=== PATIENT | female | born 1940 | race Asian ===

== ENCOUNTER 2016-10-11 08:16 | Inpatient (IN) | payer MEDICARE, MEDICAID ==
[2016-10-11] VITALS (10 sets, daily range): BP systolic 141–171; BP diastolic 61–99; PULSE 62–88; RESP 16–21; O2SAT 96–99
[~2016-10-11] VITALS: Ht 149.9 cm; Wt 60.6 kg
--- NOTE | 2016-10-11 08:23 | ED.REPORT ---
HPI-Chest Pain 40 and Over Date of Service Oct 11, 2016 ED Provider: Cammy Marie MD The patient is a 76 year old female w/ a hx of CABG (2012) and HTN who presents to the ED via EMS from the due to crushing substernal chest pain onset this morning. The pain has been waxing and waning for the past 3 days. Two days ago, she was walking around looking for someone when she felt, "very sharp and long chest pain that really hurt." The episode lasted about 1 minute, then abated. She had 3 recurrent, brief, episodes that day. This morning, after waking up, she began experiencing symptoms again and the pressure became constant and significantly worse. She is not experiencing any pain while at the ED. She was given 4 aspirin at [facility] [employer]. Pt denies nausea, diaphoresis, fever, cough, and chills. Dr. Crow Castorena is her PCP. Pt had a 3-way bypass in [place] in 2012. Records from [place] hospital are obtained and given to hospitalist. Nursing Notes Stated Complaint: CHEST PAIN Nursing Notes Reviewed: Yes Allergies: Coded Allergies: No Known Allergies (Unverified , 10/11/16) Scheduled Alendronate Sodium (Fosamax) 70 Mg Tablet 70 MG PO WEEKLY Aspirin (Aspirin) 81 Mg Tablet 81 MG PO DAILY Cyanocobalamin (Vitamin B-12) (Vitamin B12) 5,000 Mcg Tab.rapdis 5,000 MCG PO DAILY Hydrochlorothiazide (Hydrochlorothiazide) 12.5 Mg Capsule 12.5 MG PO DAILY Losartan Potassium (Losartan Potassium) 50 Mg Tablet 50 MG PO DAILY Metoprolol Succinate ER (Metoprolol Succinate ER) 50 Mg Tab.er.24h 50 MG PO DAILY Multivitamin (Once Daily) 1 Each Tablet 1 EACH PO DAILY Ranitidine (Ranitidine) 150 Mg Capsule 150 MG PO BID Simvastatin (Simvastatin) 40 Mg Tablet 40 MG PO HS Scheduled PRN Acetaminophen (Acetaminophen) 500 Mg Tablet 1,000 MG PO Q6H PRN PRN For Pain Diphenhydra/Phenyleph/Acetamin (Allergy Plus-Sinus Broderick Caplet) 1 Each Tablet 1-2 EACH PO q4-6 hours PRN PRN allergies Tramadol (Tramadol) 50 Mg Tablet 50 MG PO BID PRN PRN For Pain General Time Seen by MD: 08:23 Chief Complaint Chest pain Hx Obtained From: Patient Arrived By: Ambulance Sudden in Onset?: Yes Onset Occurred: 3 days ago Symptom Duration: Since onset Location: : Substernal Severity: Current: No pain currently Severity: Maximum: Moderate Recent Healthcare: No recent doctor visit, No recent hospitalization Similar Sx Previous: No Past Medical History Past Medical History rheumatism arthritis Reports: Hypertension Past Surgical History Bypass surgery Reports: CABG, Inguinal hernia repair Reports: Knee replacement Social History Other Social History: Lives with children Ambulatory Status Independent Review of Systems Constitutional: Denies: Chills, Fever Respiratory: Denies: Non-productive cough Cardiovascular: Reports: Chest pain GI: Denies: Nausea Skin: Denies Diaphoresis Complete sys rev & neg: except as marked. Physical Exam Initial Vital Signs Vital Signs (First) Date Time Temp Pulse Resp B/P Pulse Ox O2 Delivery O2 Flow Rate FiO2 10/11/16 08:26 36.3 88 21 165/74 99 Room Air Initial VS: Reviewed Head / Eyes: Atraumatic, Normocephalic, PERRL ENT: Mucous membranes moist, Conjunctiva normal, No scleral icterus Neck: Supple, Non-tender, Full range of motion Back: No CVA tenderness Extremities: Vascular intact, Neuro intact, No swelling, No tenderness Skin: Warm, Dry, No cyanosis Neurologic: Alert, Oriented, Nonfocal Psychiatric: Mood/affect normal, Behavior normal, Normal thought content General/Constitutional: Awake, Alert, Cooperative Respiratory / Chest: Atraumatic, Breath sounds NL, Breath sounds = bilat, No respiratory distress, No rales, No rhonchi, No wheezing, No retractions mild left tenderness with palpation of 3rd and 4th ribs anteriorly - pain is NOT the pain she is concerned with over the last days Cardiovascular: Heart rate NL, Regular rhythm, Heart sounds NL, No gallop, No murmurs, No rubs Abdomen: Atraumatic, Soft, Non-tender, No guarding, No rebound, BS normoactive , No distention multiple psoriatic plaques over torso Interpretation & Diagnostics Lab Results Interpretation Result Diagram: 10/12/1662410/12/1625 Test 10/11/16 08:35 Hemoglobin A1c 6.2% (4.8-5.6) Total Bilirubin 0.5mg/dL (0.0-1.2) Aspartate Amino Transf (AST/SGOT) 27U/L (0-50) Alanine Aminotransferase (ALT/SGPT) 15U/L (0-32) Alkaline Phosphatase 84U/L (25-165) Pro-B-Type Natriuretic Peptide 306.1pg/mL (0-738) Total Protein 7.4g/dL (6.4-8.4) Albumin 3.9g/dL (3.4-5.0) ECG Interpretation ECG Interpretation: ST depression V2-V6 Anterial- lateral ischemia no prior EKG for comparison Time: 08:30 Interpreted by: ED physician Normal ECG Interpretation: Normal sinus rhythm (77) ECG Interpretation: Resolved lateral ST depression Time: 11:03 Interpreted by: ED physician Normal ECG Interpretation: Normal sinus rhythm (64) X-Ray Chest Interpretation Chest Xray Interpretation: IMPRESSION: No acute cardiopulmonary abnormality or interval change Dictated by: Henry Barrientos M.D. on 10/11/2016 at 9:24 Approved by: Henry Barrientos M.D. on 10/11/2016 at 9:30 View: Portable Interpretation / Wet Read by: Interpret - Radiologist Re-Eval/Medical Decision Med Decision/Clinical Course 76-year-old woman with known coronary disease presents with chest pain starting 3 days ago. intermittent and initially with mild activity. This morning worse, noted upon awakening this morning associated with dyspnea a symptom she had not noticed previously. Initial workup is unremarkable she has been pain-free in the emergency department. Certainly high risk for acute coronary syndrome. We will admit for observation and additional workup. Records from her hospital in [place] are obtained and given to the hospitalist Time of Eval: 10:00 Patient Status: Condition unchanged Re-Evaluation/Progress Note: Pt remains chest pain free. Will review imaging and lab results. Consultation : Consulted With: Hospitalist Call Returned at: 11:07 Note: Dr. Sterling is consult for Dr. Hines. Records from [place] hospital are obtained and given to hospitalist. Pt had a 3-way bypass in [place] in 2012. Counseled Regarding: Diagnosis, Lab results, Need for admission Discharge & Departure Primary Impression: Chest pain Chest pain type: unspecified Qualified Code: R07.9 - Chest pain, unspecified Disposition: ADMITTED TO HOSPITAL Discharge Condition All VS Reviewed: Yes Condition: Stable Referrals: Crow Castorena DO (PCP) Scribe Attestation Portion of this note were transcribed by Lashawn Alvarez. I, Dr. Marie, personally performed the history, physical exam, and medical decision-making: I reviewed and confirmed the accuracy for the information in the transcribed note. Signed by: kem Barrientos, 10/11/16 1200 Attending Statement pt seen and examined. High risk chest pain. Pain free in ED but clear ST depression/ischemia with pain. Agree with heparin gtt, admission and cardiac consultation. copies to: Crow Castorena Shawna L MD Oct 11, 2016 08:23 LASHAWN ALVAREZ Oct 11, 2016 08:53 no prior EKG for comparison Time: 08:30 Interpreted by: ED physician Normal ECG Interpretation: Normal sinus rhythm (77) ECG Interpretation: Resolved lateral ST depression Time: 11:03 Interpreted by: ED physician Normal ECG Interpretation: Normal sinus rhythm (64) X-Ray Chest Interpretation Chest Xray Interpretation: IMPRESSION: No acute cardiopulmonary abnormality or interval change Dictated by: Henry Barrientos M.D. on 10/11/2016 at 9:24 Approved by: Henry Barrientos M.D. on 10/11/2016 at 9:30 View: Portable Interpretation / Wet Read by: Interpret - Radiologist Re-Eval/Medical Decision Med Decision/Clinical Course 76-year-old woman with known coronary disease presents with chest pain starting 3 days ago. intermittent and initially with mild activity. This morning worse, noted upon awakening this morning associated with dyspnea a symptom she had not noticed previously. Initial workup is unremarkable she has been pain-free in the emergency department. Certainly high risk for acute coronary syndrome. We will admit for observation and additional workup. Records from her hospital in [place] are obtained and given to the hospitalist Time of Eval: 10:00 Patient Status: Condition unchanged Re-Evaluation/Progress Note: Pt remains chest pain free. Will review imaging and lab results. Consultation : Consulted With: Hospitalist Call Returned at: 11:07 Note: Dr. Sterling is consult for Dr. Hines. Records from [facility] are obtained and given to hospitalist. Pt had a 3-way bypass in [place] in 2012. Counseled Regarding: Diagnosis, Lab results, Need for admission Discharge & Departure Primary Impression: Chest pain Chest pain type: unspecified Qualified Code: R07.9 - Chest pain, unspecified Disposition: ADMITTED TO HOSPITAL Discharge Condition All VS Reviewed: Yes Condition: Stable Referrals: Crow Castorena DO (PCP) Kem Attestation Portion of this note were transcribed by Lashawn Alvarez. I, Dr. Marie, personally performed the history, physical exam, and medical decision-making: I reviewed and confirmed the accuracy for the information in the transcribed note. Signed by: kem Barrientos, 10/11/16 1200 copies to: Crow Castorena Shawna L MD Oct 11, 2016 08:23 LASHAWN ALVAREZ Oct 11, 2016 08:53
[2016-10-11 09:09] LABS: BASOPHILS % (AUTO) 0.4 % (0-3); MONOCYTES % (AUTO) 5.6 % (4-12); Mean Corpuscular Hemoglobin 30.6 pg (27.0-35.0); Mean Corpuscular Volume 92.3 fL (81-100); NEUTROPHILS % (AUTO) 66.8 % (40-74); Platelet Count 259 bil/L (150-400)
[2016-10-11 09:14] LABS: TROPONIN T 0.01 ug/L (0.0-0.011)
[2016-10-11 09:26] LABS: Magnesium 1.7 mg/dL (1.6-2.6)
--- NOTE | 2016-10-11 09:32 | DRSVH ---
PROCEDURE: X-RAY CHEST ONE VIEW, PORTABLE ([id number]) INDICATIONS: chest pain TECHNIQUE: One view of the chest was acquired. COMPARISON: 09/23/2016 FINDINGS: Surgical changes and devices: Median sternotomy Lungs and pleura: No pleural effusions or pneumothorax. Lungs are clear. Mediastinum: Mediastinal contours appear normal. Heart size is normal. Bones and chest wall: No suspicious bony lesions. Multiple insufficiency compression fractures. Oste openia. Osteoarthritis of the a.c. and glenohumeral joints. Overlying soft tissues appear unremarkabl e. IMPRESSION: No acute cardiopulmonary abnormality or interval change Dictated by: Henry Barrientos M.D. on 10/11/2016 at 9:24 Approved by: Henry Barrientos M.D. on 10/11/2016 at 9:30
[2016-10-11] MEDS ORDERED: Heparin 25K Unit/500mL 0.45 NS 25,000 UNIT in IV Premix 1 EACH IV ONE (11:00)
[2016-10-11] MEDS ORDERED: Heparin 5,000 Unit/mL Inj IVPUSH ONE (11:00)
[2016-10-11] MEDS ORDERED: Polyethylene Glycol (PEG) 17 Gm Powder PO PRN (11:05)
[2016-10-11] MEDS ORDERED: Ondansetron 2 mg/mL 2 mL Inj IVPUSH PRN (11:05)
[2016-10-11] MEDS ORDERED: Atropine 1 mg/10 mL (Code) Syringe IVPUSH PRN (11:05)
[2016-10-11] MEDS ORDERED: Senna-Docusate 8.6-50 mg Tablet PO PRN (11:05)
[2016-10-11] MEDS ORDERED: Alum-Mag Hydrox-Simeth 30 mL Suspension PO PRN (11:05)
[2016-10-11] MEDS ORDERED: Heparin 5,000 Unit/mL Inj IVPUSH PRN (11:10)
[2016-10-11] MEDS ORDERED: Heparin 25K Unit/500mL 0.45 NS 25,000 UNIT in IV Premix 1 EACH IV SCH (11:10)
--- NOTE | 2016-10-11 11:25 | PCM.HPMED ---
Subjective Date of Service Oct 11, 2016 Primary Provider: Admitting Physician: Iam Hines MD Primary Care Physician: Crow Castorena DO Attending Physician: Iam Hines MD Admit Status: From the Emergency Department, Full Admit Chief Complaint: Chest Pain History of Present Illness: Patient is a 76 year old female with a past medical history of Essential Hypertension, Hyperlipidemia, Coronary Artery Disease status post CABG in 2013, and Osteoarthritis. She presents to the ER complaining of chest pain since this morning. Pt states she awoke this morning with a heavy pressure like sensation in the center of her chest. Pt states the pain was non radiating. It was associated with shortness of breath and diaphoresis. She denies any associated nausea, vomiting, dizziness, palpitations, and abdominal pain. She states she has been having similar pain over the last 3 days. She went to Urgent Care this morning and was referred to the ER for further evaluation. In the ER, pt was found to have ST depression on EKG in leads V3-V6 which is new compared to her previous EKG in 2013. Pt was given 324 mg of Aspirin and SL Nitroglycerin in the ER, and now has complete resolution of her chest pain. Pt has no other complaints or concerns at this time. Review of Systems: All systems reviewed and are negative except for what has already been mentioned in the HPI. Allergies Coded Allergies: No Known Allergies (Unverified , 10/11/16) Home Medications Pt is unsure of which medications she is taking currently and her medication reconciliation is not completed yet. PMH 1. Essential Hypertension 2. Hyperlipidemia 3. Coronary Artery Disease 4. Osteoarthritis Surgical History 1. CABG, 4 vessels, 2013 in [place], [place] Family History Father - Essential Hypertension, CAD Mother - Stroke Social History Hx Alcohol Use: No Hx Substance Use: No Hx Tobacco Use: No Smoking Status: Never Smoker Living Arrangement: with Family Exam Vital Signs Vital Sign - Last Date Time Temp Pulse Resp B/P Pulse Ox O2 Delivery O2 Flow Rate FiO2 10/11/16 11:02 65 20 164/70 97 Room Air 10/11/16 08:26 36.3 Exam GEN: NAD, Pt laying comfortably in bed, Hard of hearing HEENT: AT/NC, PERRLA, EOMI, MM moist NECK: Supple, No thyromegaly CARDIAC: RRR, No M/R/G PULM: CTAB ABD: Soft, NT, ND, Positive BS in all quadrants; No hepatosplenomegaly present EXT: No C/C/E; No calve tenderness bilaterally SKIN: Warm, dry, pink, and intact NEURO: Alert and oriented x3; Following all commands Lab and Diagnostics Result Diagram: 10/11/1635 10/11/16 0835 X-Rays, CTs and MRIs X-RAY CHEST ONE VIEW, PORTABLE INDICATIONS: chest pain TECHNIQUE: One view of the chest was acquired. COMPARISON: 09/23/2016 FINDINGS: Surgical changes and devices: Median sternotomy Lungs and pleura: No pleural effusions or pneumothorax. Lungs are clear. Mediastinum: Mediastinal contours appear normal. Heart size is normal. Bones and chest wall: No suspicious bony lesions. Multiple insufficiency compression fractures. Osteopenia. Osteoarthritis of the a.c. and glenohumeral joints. Overlying soft tissues appear unremarkable. IMPRESSION: No acute cardiopulmonary abnormality or interval change 12-lead ECG EKG shows an acute ST depression in leads V3-V6 Assessment & Plan Patient is a 76 year old female with a past medical history of CAD, Hyperlipidemia, and Essential Hypertension who is admitted to hospital for Acute Coronary Syndrome. 1. Acute Coronary Syndrome - Present on admission - Pt does have a hx of CAD and is status post 4 vessel CABG in 2012 in [place] - Admit to PCU with telemetry - Repeat STAT EKG now - Start Aspirin 324 mg daily - Start Atorvastatin 80 mg PO daily - Start Metoprolol 12.5 mg PO BID - Start SL Nitroglycerin PRN chest pain - Start supplemental O2 to keep SpO2 greater than 92% - Start Morphine 1-2 mg IV q 4 hours PRN for refractory chest pain - Start IV Heparin drip now - Consult Cardiology now - Will check serial CK, CKMP, and Troponins - NPO after midnight for stress test - Will order an ECHO now - NM stress test in AM if troponin negative x4 - EKG PRN chest pain 2. Essential Hypertension - Pt is unsure of exactly which medication she takes at home - Start Metoprolol 12.5 mg PO BID 3. Hyperlipidemia - Pt is unsure of which medication she is taking at home - Start Atorvastatin 80 mg PO daily now - Check fasting lipid panel in AM 4. Prophylaxis - SCDs - Famotidine CODE STATUS: FULL, per discussion with patient at bedside Iam Hines MD Oct 11, 2016 11:25
--- NOTE | 2016-10-11 11:32 | NUR ---
Admission Pr arrived on [facility] to rm 3020. A/Ox3, No complains of chest pain/discomfrt/pressure, SOB or nausea. Pt os [place] ear hearing better. Able to ambulate from gurney to bed, with SBA/1 Per assist. VSS, call light with in reach, will continue to monitor.
[2016-10-11] MEDS: 0.9% Sodium Chloride 1,000 ML IV SCH (13:43)
[2016-10-11 14:35] LABS: Magnesium 1.7 mg/dL (1.6-2.6)
--- NOTE | 2016-10-11 15:08 | DRSVH ---
Merged With [facility] [address] [place] [place] [address] Echocardiogram Report Name: JAMILA BAILON Study Date: 10/11/2016 Height : 60 in Hospital Exam Location: [facility] Weight : 138 lb Gender: Female BSA: 1 .6 m2 : 1940 Age: 76 yrs BP: 16 4/70 mmHg Reason For Study: Chest pain History: CABG Ordering Physician: HOSPITALIST [facility] Performed By: Hermila Sotomayor Referring Physician: DR. ANTONIETA DAVILA Interpretation Summary 1) Normal left ventricular thickness, size, wall motion,and systolic function (EF 65-70%). 2) Normal right ventricular size and function. 3) Mildly sclerotic aortic valve with no hemodynamically significant stenosis or regurgitation. 4) Mild to moderate mitral regurgitation present. 5) No prior Echo available for comparison. Procedure: A two-dimensional transthoracic echocardiogram with color flow and Doppler was performed. The study quality was technically adequate. There is no prior echocardiogram noted for this patient. The patient was in normal sinus rhythm during the exam. Left Ventricle: The left ventricle is normal in size, wall thickness, and systolic function without any focal wall motion abnormalities. The ejection fraction is estimated to be 65-70%. Left ventricular systolic function is normal without focal wall motion abnormalities. Assessment of diastolic parameters indicates a relaxation abnormality of the left ventricle, consistent with normal filling pressures. Right Ventricle: The right ventricle is normal in size and function. Atria: Both atria are normal in size. There is no Doppler evidence for an atrial septal defect. Mitral Valve: The mitral valve leaflets appear normal. There is no evidence of stenosis, fluttering, or prolapse. The mitral valve leaflets are mildly calcified. There is mild to moderate mitral regurgitation. Aortic Valve: The aortic valve is trileaflet. There is mild aortic valve sclerosis. The aortic valve opens well. There is no hemodynamically significant valvular aortic stenosis. No aortic regurgitation is present. Tricuspid Valve: The tricuspid valve leaflets are thin and pliable. There is moderate tricuspid regurgitation. The right ventricular systolic pressure is estimated at 35 mmHg assuming a right atrial pressure of 3 mm Hg. Pulmonic Valve: The pulmonic valve leaflets are thin and pliable; valve motion is normal. There is no pulmonic valvular regurgitation. Great Vessels: The aortic root is normal size. The dimensions of the ascending aorta are normal. The pulmonary artery is normal size. The IVC is of normal diameter and collapses greater than 50% with a sniff. This suggests a low right atrial pressure of 3 mm Hg. Pericardium/ Pleura There is no pericardial effusion. There is no pleural effusion. MMode/2D Measurements & Calculations LVIDd: 3.7 cm LA dimension: 4.3 cm RA long axis LVOT diam: 2.0 cm LVIDs: 2.4 cm AoV Opening FS: 36.3 % LA A2 area: 19.2 cm RA area EPSS: 0.53 cm LA A4 area: 19.5 cm Ao root diam IVSd: 0.95 cm LA length (vol) : 13.5 cm LVPWd: 0.89 cm RA vol Aortic Jxn: 2.7 cm LA vol: 57.3 ml : 31.1 ml asc Aorta Diam LA vol index RA : 19.5 mm/ Ao Arch Diam (Prox RVDd major Trans): 2.3 cm IVC diam: 2.0 cm : 5.9 cm LV burr. diameter/BSA LV sys. diameter/BSA RVD1 (basal) RVD2 (mid): 2.8 cm (cm/m^2): 2.3 (cm/m^2): 1.5 Doppler Measurements & Calculations Ao V2 max MV E max paul MV E/A: 1.1 TR max paul : 188.2 cm/sec : 90.8 cm/sec Med Peak E' Paul : 283.6 cm/sec Ao max PG MV A max paul TR max P.2 mmHg : 14.2 mmHg : 82.2 cm/sec E/E' med: 16.6 PA V2 max Ao mean PG MV P1/2t Lat Peak E' Paul : 98.2 cm/sec : 70.9 msec PA mean P.6 mmHg LVOT Max Paul MR ERO: 0.23 cm2 E/E' lat: 10.0 PA Accel Time : 103.7 cm/sec E/e' average: 13.3 : 0.07 sec BLANQUITA(I,D): 1.7 cm Pulm A Revs Dur sev ratio MV A dur: 0.13 sec MV dec time MV P1/2t max paul Ao V2 mean LV V1 max PG : 0.24 sec : 129.8 cm/sec MVA(P1/2t) Ao V2 VTI: 37.9 cm LV V1 VTI: 21.1 cm : 3.1 cm2 BLANQUITA(V,D): 1.7 cm2 MR flow rate PA V2 mean BLANQUITA indexed to BSA Pulm A Revs Dur - MV : 135.5 cm3/sec : 58.8 cm/sec (cm^2/m^2): 1.1 A Dur: -0.04 msec MR PISA radius Reading Physician:03:07 PM
--- NOTE | 2016-10-11 16:18 | PCM.CHPCAR ---
Consult Subjective Date of service Oct 11, 2016 Date of admit Oct 11, 2016 at 10:49 Provider Requesting Consult Primary Care Physician Primary Care Provider: Crow Castorena DO Chief Complaint Chest pain History of Present Illness Ms. Ross is a pleasant 76 year old female with PMH of HTN, HLD, RA and CAD (s /p CABG in 2012) presented to [facility] ED 2/2 CP x 3 days and getting far worse this morning. She states this pain began while she was walking around her house looking for her family 3 days ago and describes the chest pain as a heavy pressure like sensation mid sternum, non radiating without SOB and diaphoresis. Pt denies associated N/V, dizziness, palpitations or any other pain. She does endorse a similar pain about three years ago which led to her CABG in [place]. ECG in the ED showed ST depression in leads V3-V6, repeat ECG showed resolution of the ST depression. In ED Pt given ASA and nitro with resolution of her CP. Initial and repeat troponin Negative. Pt does endorse a semi productive cough over the last few days as well as a recent respiratory illness after receiving her flu and pneumonia vaccine approximately 3 weeks ago. No other sick contacts at home. Patient denies recent fever When asked to localize chest pain patient will point with one finger to left breast area. This pain is immediately reproduced upon palpation in both left breast area as well as sternal area. Of note Pt was recently seen as in the residency clinic for workup secondary to abnormal CXR. Patient had chest x-ray 09/23/2016 which showed mild interstitial prominence possibly fluid overload or underlying fibrotic change bones and chest wall at that time noted no suspicious bony abnormalities. CXR done 10/11/2016 showed multiple insufficiency compression fractures the bones and chest wall. Osteopenia. No acute cardiopulmonary abnormality or interval change. Mammogram done 09/07/2016 with repeat mammogram 09/14/2016 showed that the tissue of the left breast to be extremely dense with oval focal asymmetry with obscured margins of indeterminant significance. Follow-up ultrasound showed no evidence of malignancy and no abnormality to correspond with previous 2 mammography's. Per previous healthcare records from [place] is also reported patient has had a chest x-ray that was suggestive of TB. Pertinent past medical/cardiac history: Hypertension, hyperlipidemia, CAD status post CABG. patient does not endorse diabetic history though outpatient records from [place] show previously on metformin 500 twice a day. Home medications: Patient states home meds include hydrochlorothiazide, metoprolol, losartan, atorvastatin Social history: Patient is nonsmoker, denies EtOH use denies recreational drug use. Lives at home with daughter, son-in-law and granddaughter age 15. Family history significant for both parents suffering fatal heart attacks in their 70s. She reports 3 of her brothers have also suffered myocardial infarction. Review of Systems Review of Systems REVIEW OF SYSTEMS Constitutional: Denies Chills, Fever, Sweats, Weakness Eyes: Endorses blurry vision bilaterally (chronic). ENT: Denies Dysphagia, Ear Pain, Hoarseness, Nasal Congestion, Nose Discharge, Throat Pain. Endorses hearing loss bilaterally. Neck: Denies Mass, Pain, Swelling Cardiovascular: Denies Irregular Heart Rate, Palpitations, Rapid Heart Rate, SOB on Exertion, SOB while laying flat. Endorses heavy chest pain left sternal border left breast area, increased with palpation. Respiratory: Endorses mildly productive cough. Cannot classify consistency or makeup of phlegm. Gastrointestinal: Denies Abdominal Pain, Black tarry stools, Bright red blood in stool, Change in Appetite, Constipation, Diarrhea, Heartburn, Nausea, Vomiting Genitourinary: Denies No burning or pain with urination Neurological: Denies Change in LOC, Change in Speech, Confusion, Difficulty Walking, Dizziness, Double Vision, Drooping Mouth, Incoordination, Localized Weakness, Numbness, Seizures, Somnolence, Tremors, Vertigo Hematologic: Denies Abnormal Bleeding, Bruising PMH Past Medical History Hypertension hyperlipidemia CAD status post CABG in 2013 Rheumatoid arthritis Psoriasis Arthritis Osteoporosis Hearing loss, bilateral Past Surgical History CABG 2013 unknown vessel involvement Knee surgery Scheduled Alendronate Sodium (Fosamax) 70 Mg Tablet 70 MG PO WEEKLY (Reported) Aspirin (Aspirin) 81 Mg Tablet 81 MG PO DAILY (Reported) Cyanocobalamin (Vitamin B-12) (Vitamin B12) 5,000 Mcg Tab.rapdis 5,000 MCG PO DAILY (Reported) Hydrochlorothiazide (Hydrochlorothiazide) 12.5 Mg Capsule 12.5 MG PO DAILY ( Reported) Losartan Potassium (Losartan Potassium) 50 Mg Tablet 50 MG PO DAILY (Reported) Metoprolol Succinate ER (Metoprolol Succinate ER) 50 Mg Tab.er.24h 50 MG PO DAILY (Reported) Multivitamin (Once Daily) 1 Each Tablet 1 EACH PO DAILY (Reported) Ranitidine (Ranitidine) 150 Mg Capsule 150 MG PO BID (Reported) Simvastatin (Simvastatin) 40 Mg Tablet 40 MG PO HS (Reported) Scheduled PRN Acetaminophen (Acetaminophen) 500 Mg Tablet 1,000 MG PO Q6H PRN PRN For Pain ( Reported) Diphenhydra/Phenyleph/Acetamin (Allergy Plus-Sinus Broderick Caplet) 1 Each Tablet 1-2 EACH PO q4-6 hours PRN PRN allergies (Reported) Tramadol (Tramadol) 50 Mg Tablet 50 MG PO BID PRN PRN For Pain (Reported) Current Inpatient Medications Current Medications Sodium Chloride 10 ml 10 ml LOU IVFLUSH; Start 10/11/16 at 16:30 Sodium Chloride 1,000 ml @ 80 mls/hr [id number] IV; Start 10/11/16 at 11:02 Aspirin 81 mg DAILY PO; Start 10/12/16 at 08:30 Metoprolol Tartrate 12.5 mg Q12 PO; Start 10/11/16 at 20:30 Atorvastatin Calcium 80 mg HS PO; Start 10/11/16 at 21:00 Al Hydrox/Mg Hydrox/Simethicone 30 ml Q6 PRN PO; Start 10/11/16 at 11:05 Ondansetron HCl 4-8 mg prn nausea Q4 PRN IVPUSH; Start 10/11/16 at 11:05 Senna 1 tablet BID PRN PO; Start 10/11/16 at 11:05 Polyethylene Glycol 17 gm DAILY PRN PO; Start 10/11/16 at 11:05 Acetaminophen 325 mg Q6 PRN PO; Start 10/11/16 at 11:05 Nitroglycerin 0.4 mg Q5MIN PRN SL; Start 10/11/16 at 11:05 Morphine Sulfate 1-5 mg prn pain not relie... Q5M PRN IVPUSH; Start 10/11/16 at 11:05 Atropine Sulfate See above Q5MIN PRN IVPUSH; Start 10/11/16 at 11:05 Heparin Sodium (Porcine) Per Protocol for a... PRN PRN IVPUSH; Start 10/11/16 at 11:10 Allergies: Coded Allergies: No Known Allergies (Unverified , 10/11/16) Social History Hx Alcohol Use: NoHx Substance Use: NoHx Tobacco Use: No Smoking Status: Never Smoker Living Arrangement: with Family Exam Vital Signs Vital Sign - Last Date Time Temp Pulse Resp B/P Pulse Ox O2 Delivery O2 Flow Rate FiO2 10/11/16 11:33 37.1 62 18 169/70 98 Room Air Objective General: No acute distress, well-developed, well-nourished, appropriately interactive HEENT: Normocephalic, atraumatic. External ears without defect. Pupils equal, round, and reactive to light and accommodation. Anicteric sclerae, moist conjunctivae, and no lid lag. Oropharynx free of erythema and cobble stoning with moist mucosa. Neck: Supple with full range of motion. No jugular venous distension. No bruits. Bounding carotid pulses appreciated visually bilaterally Cardiovascular: Regular rate and rhythm with no murmurs, rubs, or gallops appreciated, central sternal scar from previous surgery, well-healed. Pulmonary: Slight expiratory wheeze right upper lower lobe. Normal respiratory effort with no use of accessory muscles. Abdomen: Soft, nontender, nondistended. Extremities: No clubbing, cyanosis, edema, or lymphadenopathy appreciated. Skin: Normal temperature, turgor, and texture; no rash, ulcers, or subcutaneous nodules appreciated. Neurological: Cranial nerves grossly intact. Normal muscle strength, tone, and bulk. Reflexes, coordination, and sensory function within normal limits. Psychiatric: Normal mood and affect. Alert and oriented to person, place, and time. Lab and Diagnostics Result Diagram: 10/11/16 0835 10/11/16 0835 X-Rays, CTs and MRIs . X-RAY CHEST ONE VIEW, PORTABLE Bones and chest wall: No suspicious bony lesions. Multiple insufficiency compression fractures. Osteopenia. Osteoarthritis of the a.c. and glenohumeral joints. Overlying soft tissues appear unremarkable. IMPRESSION: No acute cardiopulmonary abnormality or interval change . 12-lead ECG ECG in ED 10/11/2016 at 08:[address] depression in leads V2 through V6. Repeat ECG at 11:[address] depression. Additional Diagnostics: . Echocardiogram Report Interpretation Summary 1) Normal left ventricular thickness, size, wall motion,and systolic function ( EF 65-70%). 2) Normal right ventricular size and function. 3) Mildly sclerotic aortic valve with no hemodynamically significant stenosis or regurgitation. 4) Mild to moderate mitral regurgitation present. 5) No prior Echo available for comparison. . Assessment & Plan Assessment 76-year-old female past medical history of hypertension, hyperlipidemia, CAD status post CABG 2012 admitted for chest pain, hospital day 1. # Non cardiac chest pain. Troponin negative x 2, CK CKMB negative. CXR showed no acute cardiopulmonary disease though did show multiple insufficiency compression fractures in the chest and osteopenia. ECHO showed EF 65-70% with normal LV size and function, mild/moderate MR. Initial EKG showed ST depressions in anterior leads with repeat EKG showing resolution of this. Pt currently still endorses CP located left lateral to the sternum, reproducible to palpation. Given Pt's history of RA as well as osteopenia, CP may be costochondritis secondary to RA, or due to insufficiency compression fractures. - Continue ASA 81mg daily - Stop Atorvastatin 80 mg PO daily - Start Atorvastatin 40mg daily - Stop Metoprolol 12.5 mg PO BID - Start home Metoprolol ER, increase dose from home 50mg daily to 100mg daily, first dose today 20:30 followed by daily dose at 08:30 - Start pt home dose losartan, increase dose from 50mg daily to 100mg daily, first dose today - Start home HCTZ - increase dose from home dose 12.5 mg daily to 25 mg daily, first dose today - O2 via NC to keep SpO2 greater than 92% - Stop IV Heparin drip - Repeat Troponin for total of 3 values - NPO after midnight for stress test - EKG PRN chest pain - Continue SL Nitroglycerin PRN chest pain - Continue Morphine 1-2 mg IV q 4 hours PRN for refractory chest pain #. Essential Hypertension - Losartan as above - Metoprolol as above - HCTZ as above #. Hyperlipidemia, outpatient records 09/23/2016 Show total cholesterol 174, HDL 68, LDL 86 - Atorvastatin as above Attending Statement Patient seen and d/w resident, reproducible non cardiac pain. GRACE FRANKS DO Oct 11, 2016 13:22 Cullen Sterling MD Oct 12, 2016 14:50
[2016-10-11] MEDS: Sodium Chloride LOK Flush 10 mL Syringe IVFLUSH SCH (16:30)
[2016-10-11] MEDS ORDERED: RANI150C4 PO (17:15)
[2016-10-11] MEDS ORDERED: TRAM50TA2 PO (17:15)
[2016-10-11] MEDS ORDERED: METO-272 PO (17:15)
[2016-10-11] MEDS ORDERED: SIMV40TA5 PO (17:15)
[2016-10-11] MEDS ORDERED: CYAN50008 PO (17:15)
[2016-10-11] MEDS ORDERED: HYDR12.5 PO (17:15)
[2016-10-11] MEDS ORDERED: LOSA50TA37 PO (17:15)
[2016-10-11] MEDS ORDERED: ALEN70TA2 PO (17:15)
[2016-10-11] MEDS ORDERED: ASPI-973 PO (17:15)
[2016-10-11] MEDS ORDERED: ACET-171 PO (17:15)
[2016-10-11] MEDS ORDERED: MULT-666 PO (17:15)
[2016-10-11] MEDS ORDERED: DIPH-575 PO (17:15)
[2016-10-11 17:51] LABS: Creatine Kinase 137 U/L (21-215)
--- NOTE | 2016-10-11 19:04 | NUR ---
Case Management: IMM explained to patient and family at 1900, all questions answered. Signed original placed in chart,copy given to patient. Porsche Chowdhury RN
[2016-10-11] MEDS: MeTOProlol XL 50 mg ER24 Tablet PO SCH (20:46)
[2016-10-11 23:17] LABS: Creatine Kinase 124 U/L (21-215)
[2016-10-12] VITALS (9 sets, daily range): BP systolic 141–197; BP diastolic 66–97; PULSE 55–70; RESP 18–20; O2SAT 97–99
[2016-10-12] MEDS: 0.9% Sodium Chloride 1,000 ML IV SCH ×2 (00:19→12:02)
[2016-10-12] MEDS: Sodium Chloride LOK Flush 10 mL Syringe IVFLUSH SCH ×3 (00:30→16:24)
--- NOTE | 2016-10-12 05:41 | NUR ---
Noc activity Pt denies chest pain, sob, n.v or abd discomfort. Pt has been NPO since [place] for preparation in stress test. Pt verbalizes understanding of not having anything caffeine before the test. Hourly rounding done and pt has slept most of the night.
[2016-10-12 07:09] LABS: BASOPHILS % (AUTO) 0.5 % (0-3); EOSINOPHILS % (AUTO) 2.7 % (0-5); MONOCYTES % (AUTO) 6.7 % (4-12); Mean Corpuscular Hemoglobin 30.3 pg (27.0-35.0); NEUTROPHILS % (AUTO) 58.8 % (40-74); Platelet Count 261 bil/L (150-400)
[2016-10-12 07:53] LABS: Creatine Kinase 120 U/L (21-215)
--- NOTE | 2016-10-12 07:58 | NUR ---
Off unit Patient to [facility] for stress test.
[2016-10-12] MEDS: MeTOProlol XL 50 mg ER24 Tablet PO SCH (10:43)
--- NOTE | 2016-10-12 12:47 | PCM.PNCARD ---
Subjective Date of service Oct 12, 2016 Chief Complaint Chest pain History of Present Illness Ms. Ross is a pleasant 76 year old female with PMH of HTN, HLD, RA and CAD (s /p CABG in 2012) presented to [facility] ED 2/2 CP x 3 days and getting far worse this morning. She states this pain began while she was walking around her house looking for her family 3 days ago and describes the chest pain as a heavy pressure like sensation mid sternum, non radiating without SOB and diaphoresis. Pt denies associated N/V, dizziness, palpitations or any other pain. She does endorse a similar pain about three years ago which led to her CABG in [place]. ECG in the ED showed ST depression in leads V3-V6, repeat ECG showed resolution of the ST depression. In ED Pt given ASA and nitro with resolution of her CP. Initial and repeat troponin Negative. Pt does endorse a semi productive cough over the last few days as well as a recent respiratory illness after receiving her flu and pneumonia vaccine approximately 3 weeks ago. No other sick contacts at home. Patient denies recent fever When asked to localize chest pain patient will point with one finger to left breast area. This pain is immediately reproduced upon palpation in both left breast area as well as sternal area. Of note Pt was recently seen as in the residency clinic for workup secondary to abnormal CXR. Patient had chest x-ray 09/23/2016 which showed mild interstitial prominence possibly fluid overload or underlying fibrotic change bones and chest wall at that time noted no suspicious bony abnormalities. CXR done 10/11/2016 showed multiple insufficiency compression fractures the bones and chest wall. Osteopenia. No acute cardiopulmonary abnormality or interval change. Mammogram done 09/07/2016 with repeat mammogram 09/14/2016 showed that the tissue of the left breast to be extremely dense with oval focal asymmetry with obscured margins of indeterminant significance. Follow-up ultrasound showed no evidence of malignancy and no abnormality to correspond with previous 2 mammography's. Per previous healthcare records from [place] is also reported patient has had a chest x-ray that was suggestive of TB. Pertinent past medical/cardiac history: Hypertension, hyperlipidemia, CAD status post CABG. patient does not endorse diabetic history though outpatient records from [place] show previously on metformin 500 twice a day. Home medications: Patient states home meds include hydrochlorothiazide, metoprolol, losartan, atorvastatin Social history: Patient is nonsmoker, denies EtOH use denies recreational drug use. Lives at home with daughter, son-in-law and granddaughter age 15. Family history significant for both parents suffering fatal heart attacks in their 70s. She reports 3 of her brothers have also suffered myocardial infarction. Subjective: At time of interview patient recently returned from cardiac stress test, she stated that her blood pressure became elevated after Lexiscan injection. She currently does not endorse any chest pain stating complete resolution of prior symptoms. She feels much better and states that she is ready to go home though is still curious as to the cause of her original chest pain. Overnight: Per nurse Pt did not have any CP, N/V. Uneventful night. Patient remained slightly hypertensive though improved from previous values. Constitutional: Denies Chills, Fever, Sweats, Weakness Eyes: Endorses blurry vision bilaterally (chronic). ENT: Endorses hearing loss bilaterally. Cardiovascular: Denies Irregular Heart Rate, Palpitations, Rapid Heart Rate, SOB on Exertion, SOB while laying flat. States resolution of chest pain though still states pain is present on deep palpation. Respiratory: Endorses mildly productive cough, improved from yesterday. No phlegm production in the last 24 hours. Gastrointestinal: Denies Abdominal Pain. Change in Appetite, Constipation, Diarrhea, Heartburn, Nausea, Vomiting Genitourinary: Denies No burning or pain with urination Neurological: Denies Change in LOC, Change in Speech, Confusion, Difficulty Walking, Dizziness, Double Vision, Localized Weakness, Numbness, Vertigo Hematologic: Denies Abnormal Bleeding, Bruising Exam Vital Signs Vital Sign - Last Date Time Temp Pulse Resp B/P Pulse Ox O2 Delivery O2 Flow Rate FiO2 10/12/16 04:10 37.1 60 20 145/69 97 Room Air Intake and Output 10/11/16 10/11/16 10/12/16 Cumulative From/Thru 15:00 23:00 07:00 10/11/16 11:43 - 10/12/16 05:52 Intake Total 1509 ml 1509 ml Output Total 950 ml 950 ml Balance 559 ml 559 ml Intake Oral 220 ml 220 ml IV Total 1289 ml 1289 ml Output Urine Total 950 ml 950 ml Additional Information: General: No acute distress, well-developed, well-nourished, appropriately interactive HEENT: Normocephalic, atraumatic. External ears without defect. Pupils equal, round, and reactive to light and accommodation. Anicteric sclerae, moist conjunctivae, and no lid lag. Oropharynx free of erythema and cobble stoning with moist mucosa. Neck: Supple with full range of motion. No jugular venous distension. No bruits. Bounding carotid pulses appreciated visualized bilaterally Cardiovascular: Regular rate and rhythm with no murmurs, rubs, or gallops appreciated, central sternal scar from previous surgery Pulmonary: Slight expiratory wheeze right upper lower lobe, slightly improved from yesterday. Normal respiratory effort with no use of accessory muscles. Abdomen: Soft, nontender, nondistended. Extremities: No clubbing, cyanosis, edema, or lymphadenopathy appreciated. Skin: Normal temperature, turgor, and texture. Neurological: Cranial nerves grossly intact. Normal muscle strength, tone, and bulk. Psychiatric: Normal mood and affect. Alert and oriented to person, place, and time. Lab and Diagnostics Result Diagram: 10/12/1662410/12/16624 Additional Diagnostics: X-Rays, CTs and MRIs . X-RAY CHEST ONE VIEW, PORTABLE Bones and chest wall: No suspicious bony lesions. Multiple insufficiency compression fractures. Osteopenia. Osteoarthritis of the a.c. and glenohumeral joints. Overlying soft tissues appear unremarkable. IMPRESSION: No acute cardiopulmonary abnormality or interval change . 12-lead ECG ECG in ED 10/11/2016 at 08:[address] depression in leads V2 through V6. Repeat ECG at 11:[address] depression. Additional Diagnostics: . Echocardiogram Report Interpretation Summary 1) Normal left ventricular thickness, size, wall motion,and systolic function ( EF 65-70%). 2) Normal right ventricular size and function. 3) Mildly sclerotic aortic valve with no hemodynamically significant stenosis or regurgitation. 4) Mild to moderate mitral regurgitation present. 5) No prior Echo available for comparison. . Assessment & Plan Assessment 76-year-old female past medical history of hypertension, hyperlipidemia, CAD status post CABG 2012 admitted for chest pain, hospital day 2. # Non cardiac chest pain. Troponin negative x 32, CK CKMB negative. CXR showed no acute cardiopulmonary disease though did show multiple insufficiency compression fractures in the chest and osteopenia. ECHO showed EF 65-70% with normal LV size and function, mild/moderate MR. Initial EKG showed ST depressions in anterior leads with repeat EKG showing resolution of this. At time of dictation awaiting results of pharmacological stress test. Patient states chest pain at rest has resolved, though still endorses pain with deep palpation. Given Pt's history of RA as well as osteopenia, CP may be costochondritis secondary to RA, or due to insufficiency compression fractures. Overnight her hypertension remained though this improved somewhat. - Continue ASA 81mg daily - Continue Atorvastatin 40mg daily - Continue home Metoprolol ER, increase dose from home 50mg daily to 100mg daily , first dose today 20:30 followed by daily dose at 08:30 - Continue pt home dose losartan, increase dose from 50mg daily to 100mg daily, first dose today - Continue home HCTZ - increase dose from home dose 12.5 mg daily to 25 mg daily , first dose today - O2 via NC to keep SpO2 greater than 92% - EKG PRN chest pain - Continue SL Nitroglycerin PRN chest pain - Continue Morphine 1-2 mg IV q 4 hours PRN for refractory chest pain # Essential Hypertension - Losartan as above - Metoprolol as above - HCTZ as above #. Hyperlipidemia, outpatient records 09/23/2016 Show total cholesterol 174, HDL 68, LDL 86 - Atorvastatin as above At this point chest pain determined to be noncardiac in origin, still awaiting pharmacologic stress test results. Problems: GRACE SOLOMON DO Oct 12, 2016 09:51
--- NOTE | 2016-10-12 17:34 | NUR ---
spiritual care: pt request brief visit. conversational . pt rastafari and would appreciate rec. ardon tomorrow.
--- NOTE | 2016-10-12 18:12 | PCM.PNMED ---
Subjective Date of Service Oct 12, 2016 Subjective Patient is a 76 year old female with a past medical history of Essential Hypertension, Hyperlipidemia, Coronary Artery Disease status post CABG in 2012, and Osteoarthritis. She presents to the ER complaining of chest pain. Patient has been admitted for AK rule out. Hospital day #2. Overnight: no acute events. Patient states her chest pain has been resolved and she is feeling fine. She denies chest pain, shortness of breath, nausea, vomiting, dizziness, palpitations, and abdominal pain. Pt has no other complaints or concerns at this time. Exam Vital Signs Vital Sign - Last Date Time Temp Pulse Resp B/P Pulse Ox O2 Delivery O2 Flow Rate FiO2 10/12/16 11:57 36.7 66 20 149/70 99 Room Air Intake and Output 10/11/16 10/11/16 10/12/16 Cumulative From/Thru 15:00 23:00 07:00 10/11/16 11:43 - 10/12/16 05:52 Intake Total 1509 ml 1509 ml Output Total 950 ml 950 ml Balance 559 ml 559 ml Intake Oral 220 ml 220 ml IV Total 1289 ml 1289 ml Output Urine Total 950 ml 950 ml Exam General: No acute distress, well-developed, well-nourished, appropriately interactive HEENT: Normocephalic, atraumatic. External ears without defect. Pupils equal, round, and reactive to light and accommodation. Anicteric sclerae, moist conjunctivae, and no lid lag. Oropharynx free of erythema and cobble stoning with moist mucosa. Neck: Supple with full range of motion. No jugular venous distension. No bruits. Bounding carotid pulses appreciated visualized bilaterally Cardiovascular: Regular rate and rhythm with no murmurs, rubs, or gallops appreciated, central sternal scar from previous surgery Pulmonary: Slight expiratory wheeze right upper lower lobe, slightly improved from yesterday. Normal respiratory effort with no use of accessory muscles. Abdomen: Soft, nontender, nondistended. Extremities: No clubbing, cyanosis, edema, or lymphadenopathy appreciated. Skin: Normal temperature, turgor, and texture. Neurological: Cranial nerves grossly intact. Normal muscle strength, tone, and bulk. Psychiatric: Normal mood and affect. Alert and oriented to person, place, and time. Lab and Diagnostics Result Diagram: 10/12/1662410/12/16624 X-Rays, CTs and MRIs X-RAY CHEST ONE VIEW, PORTABLE INDICATIONS: chest pain TECHNIQUE: One view of the chest was acquired. COMPARISON: 09/23/2016 FINDINGS: Surgical changes and devices: Median sternotomy Lungs and pleura: No pleural effusions or pneumothorax. Lungs are clear. Mediastinum: Mediastinal contours appear normal. Heart size is normal. Bones and chest wall: No suspicious bony lesions. Multiple insufficiency compression fractures. Osteopenia. Osteoarthritis of the a.c. and glenohumeral joints. Overlying soft tissues appear unremarkable. IMPRESSION: No acute cardiopulmonary abnormality or interval change 12-lead ECG EKG shows an acute ST depression in leads V3-V6 Assessment & Plan Patient is a 76 year old female with a past medical history of CAD, Hyperlipidemia, and Essential Hypertension who is admitted to hospital for Acute Coronary Syndrome. Patient does have a hx of CAD and is status post 4 vessel CABG in 2012 in [place]. 1. Probable Acute Coronary Syndrome, present on admission, resolving - Most likely non cardiac chest pain. Negative troponin, CK CKMB. Chest x- ray showed no acute cardiopulmonary disease. ECHO showed EF 65-70% with normal LV size and function, mild/moderate MR. Initial EKG showed ST depressions in anterior leads with repeat EKG showing resolution of this. Pharmacological stress test results pending. Patient states her chest pain has been resolved. Per cardiology recommendation: - Continue ASA 81mg daily - Continue Atorvastatin 40mg daily - Continue home Metoprolol ER, increase dose from home 50mg daily to 100mg daily , first dose today 20:30 followed by daily dose at 08:30 - Continue pt home dose losartan, increase dose from 50mg daily to 100mg daily, first dose today - Continue home HCTZ - increase dose from home dose 12.5 mg daily to 25 mg daily , first dose today - O2 via NC to keep SpO2 greater than 92% - EKG PRN chest pain - Continue SL Nitroglycerin PRN chest pain - Continue Morphine 1-2 mg IV q 4 hours PRN for refractory chest pain 2. Essential Hypertension - Losartan as above - Metoprolol as above - HCTZ as above 3. Hyperlipidemia - 09/23/2016: total cholesterol 174, HDL 68, LDL 86 - Atorvastatin as above Pain Evaluation: Adequate Pain Control GI Prophylaxis: Not indicated VTE Prophylaxis: SCDs Resuscitation Status: CPR: Attempt Resuscitation Attending Statement The patient was seen and examined together with Dr. Kaufman on 10/12/16 and I agree with the history, exam and plan as outlined in the note above. Jennifer Kaufman DO Oct 12, 2016 18:11 Lorena Beavers DO Oct 13, 2016 10:25
--- NOTE | 2016-10-12 18:26 | NUR ---
Generalized weakness Patient reporting feeling "very weak" following stress test. Patient denied chest pain/discomfort or shortness of breath at this time. After patient ate meal, she reported that her weakness was gone and that she was feeling much better.
--- NOTE | 2016-10-12 18:37 | DRSVH ---
PROCEDURE: 1 DAY PHARMACOLOGICAL STRESS TEST INDICATIONS: Chest Pain. COMPARISON: None. Rest dose 8.36 mCi of technetium 99 tetrofosmin. Stress dose 26.1 mCi of technetium 99 tetrofosmin. Patient presentation: 76-year-old woman with hypertension, hyperlipidemia, diabetes and history of co ronary artery disease status post 3 vessel CABG in 2012. FINDINGS: Pharmacologic stress test: Following informed consent the skin was infused per protocol. Patient jimy ed chest pain. At peak stress patient develop horizontal 1 mm T. depressions in V2, aVF, V4, V5 and V 6. No ectopy present. Raw data: Normal myocardial tracer uptake. Lung heart ratio is grossly normal. Myocardial perfusion imaging: There is a large size severe intensity reversible inferior perfusion d efect extending from base to distal inferior segment. Images are actually made worse by placing the p atient in prone position. Therefore this finding is most consistent with inferior ischemia. Quantitative data SPECT: At peak stress ejection fraction is 58%. Rest ejection fraction 60%. No foca l wall motion abnormalities present. IMPRESSION: Abnormal pharmacologic stress test for myocardial perfusion imaging. Large severe reversible inferior perfusion defect consistent with ischemia in PDA distribution. Dynamic ST changes during chemical stress test. No prior study available for comparison Dictated by: Jacqui Motley M.D. on 10/12/2016 at 18:30 Approved by: Jacqui Motley M.D. on 10/12/2016 at 18:35
[2016-10-12] MEDS ORDERED: diphenhydrAMINE 25 mg Capsule PO ONE (21:35)
--- NOTE | 2016-10-12 23:00 | NUR ---
Chest pressure Pt complaints of chest pressure. EKG was obtained and was SR with no ectopy. Pt was given 1 tablet of SL nitro and symptoms resolved.
[2016-10-13] VITALS (18 sets, daily range): BP systolic 93–177; BP diastolic 54–91; PULSE 56–87; RESP 13–20; O2SAT 94–99
[2016-10-13] MEDS: Sodium Chloride LOK Flush 10 mL Syringe IVFLUSH SCH ×2 (00:31→09:33)
[2016-10-13] MEDS: 0.9% Sodium Chloride 1,000 ML IV SCH ×2 (00:31→15:00)
[2016-10-13 06:13] LABS: BASOPHILS % (AUTO) 0.4 % (0-3); Mean Corpuscular Hemoglobin 30.3 pg (27.0-35.0); Mean Corpuscular Volume 91.3 fL (81-100); NEUTROPHILS % (AUTO) 53.5 % (40-74); Platelet Count 241 bil/L (150-400)
[2016-10-13] MEDS: MeTOProlol XL 50 mg ER24 Tablet PO SCH (09:33)
[2016-10-13] MEDS ORDERED: Heparin 1,000 Units/500 mL NS Premix IV ONE (10:29)
[2016-10-13] MEDS ORDERED: 0.9% Sodium Chloride 1,000 ML ONE ×3 (10:29→11:13)
[2016-10-13] MEDS ORDERED: Nitroglycerin 50,000 mcg/250 mL D5W Premix IV ONE (10:29)
[2016-10-13] MEDS ORDERED: Heparin 1,000 Unit/mL 10 mL Inj ONE (10:30)
--- NOTE | 2016-10-13 11:06 | NUR ---
Transferred to [employer] Patient transferred to [employer] at 1107.
[2016-10-13] MEDS ORDERED: fentaNYL-PF 50 mCg/mL 2 mL Inj ONE (11:16)
--- NOTE | 2016-10-13 13:39 | NUR ---
Received Received from paint laboratory technician about 1230. VSS. Denies pain. C/O numbness in right foot that spontaneously resolved. Right groin without bleeding or hematoma. Attempted to locate family but have not to this point. Taking po well. Voided per bedpan. Continue to monitor per orders. Addendum: 10/13/16 at 1420 by MARIBEL NIETO RN Octavia MILIAN
[2016-10-13] MEDS ORDERED: Ondansetron 2 mg/mL 2 mL Inj IVPUSH PRN (14:40)
[2016-10-13] MEDS ORDERED: Atropine 1 mg/10 mL (Code) Syringe IVPUSH PRN (14:40)
[2016-10-13] MEDS ORDERED: 0.9% Sodium Chloride 400 ML (4 HRS) IV ONE (14:40)
[2016-10-13] MEDS ORDERED: Sodium Chloride LOK Flush 10 mL Syringe IVFLUSH PRN (14:40)
[2016-10-13] MEDS ORDERED: 0.9% Sodium Chloride 250 ML BOLUS IV PRN (14:40)
--- NOTE | 2016-10-13 14:50 | CS94 ---
[address] [address] DIAGNOSTIC CARDIAC CATHETERIZATION PATIENT: JAMILA BAILON : 1940 MR#: [id number] ADMIT: 10/11/2016 JOB ID: [id number] SERVICE DATE: 10/13/2016 PROCEDURE: 1. Selective right and left coronary angiography. 2. Aortic arch angiography. 3. HO angiography. 4. Saphenous vein graft angiography. 5. Left heart catheterization. INDICATION: Acute coronary syndrome, abnormal stress test showing inferior ischemia. PROCEDURAL DETAILS: The procedure was done via right femoral approach using a 6-Thai system. Further details are enumerated in the procedure log to which the reader and the coders are referred. ANGIOGRAPHIC FINDINGS: 1. Left main short distal 20% disease. 2. LAD has an ostial 30% disease. The LAD itself is diffusely diseased in its entirety. 3. Circumflex is totally occluded proximally. Faint filling of small obtuse marginal branches is noted on left coronary injections. 4. The first diagonal is a moderate caliber vessel. It has moderate diffuse disease. The LAD in its mid segment past the take-off of the first major septal branch has a long tubular stenosis ranging from 50%-80%. In the mid to distal segment, there is competitive flow noted into a graft. The LAD also gives epicardial collaterals to the RCA. 5. Right coronary artery is totally occluded in its mid segment. It also shows moderate calcification. 6. Saphenous vein graft to RCA is totally occluded. 7. Saphenous vein graft to OM is patent. It is a skip graft from OM1 to OM2 within the skip portion that is a tight 90% lesion. 8. Aortic angiography did not reveal the presence of an additional graft. This was done in two views. 9. Of note, the patient has an adverse takeoff of the left subclavian. It appears to be a type 3 arch. A nursing tech catheter was used to get into the subclavian. 10. HO angiography was then performed. The HO on this AP injection does not appear to be attached to the left coronary. There are no salvatore supporting this and the distal HO did not appear to join the LAD. At this point, however, the catheter prolapsed and the procedure was terminated. In summary, this lady has severe disease in her LAD. The LAD has evidence of a graft that showed retrograde filling. I would like to get her operative report. She also has disease in the saphenous vein graft skipping from OM1 to OM2. This can be dealt with percutaneously. However, the issue of LAD disease still remains unaddressed. Therefore, I feel it is important to have her old operative report which I am trying to obtain from [facility] in [place]. I will be discussing all treatment options with the patient once I have this report.
--- NOTE | 2016-10-13 15:03 | NUR ---
Transfer Report to Aaron Tavares RN about 1345. VSS and right groin stable. Finished lunch about 1440. Transported to 3020 in no distress at 1445 via bed. Bedside check done. Pt. voided about 600ml in ISMAEL.
--- NOTE | 2016-10-13 15:38 | NUR ---
Social Work-initial assessment: Data& Assessment: EMR Reviewed. See initial assessment. Pt is a 76 y/o female who was admitted on 10/11/16 for chest pain per H&P. Pt's insurance is [facility] and [facility] and PCP is Crow Castorena MD. Pt's readmission score is 3-high risk. SW met with pt to discuss discharge planning, SW role explained and initial assessment. Pt is alert and oriented x3. Pt resides at home with family in a single level home with no steps to enter where pt remains independent with basic ADLs. Pt uses a 4ww inside home at baseline and a cane outside of the home. The patient does not drive. Pt has no HH or SNF history. Pt has not completed DPOA/ advanced directive and social work therapist provided patient with information. Pt has no usp care or VA benefits. Pt's family has been assisting her at home. Patient does not have any SW needs at the current time. SW will continue to follow patient incase a need arise. SW provided phone number and plan on white board in room. SW will continue to follow. Plan: Pt to likely discharge home no needs. Pt's family is supportive. SW will continue to follow. Rashid David LMSW, [place] Addendum: 10/13/16 at 1549 by RASHID DAVID Amended: Links added.
--- NOTE | 2016-10-13 16:19 | PCM.PNMED ---
Subjective Date of Service Oct 13, 2016 Subjective Patient is a 76 year old female with a past medical history of Essential Hypertension, Hyperlipidemia, Coronary Artery Disease status post CABG in 2012, and Osteoarthritis. She presents to the ER complaining of chest pain. Patient has been admitted for OR rule out. Hospital day #3. Overnight: no acute events. Telemetry: Sinus paula in 58's. Patient states her chest pain has been resolved and she is feeling fine. She denies chest pain, shortness of breath, nausea, vomiting, dizziness, palpitations, and abdominal pain. Patient is somewhat anxious about the labor and delivery registered nurse today. Exam Vital Signs Vital Sign - Last Date Time Temp Pulse Resp B/P Pulse Ox O2 Delivery O2 Flow Rate FiO2 10/13/16 15:55 67 18 95/58 95 Room Air 10/13/16 08:29 36.6 Intake and Output 10/12/16 10/12/16 10/13/16 Cumulative From/Thru 15:00 23:00 07:00 10/11/16 11:43 - 10/13/16 05:32 Intake Total 2475 ml 100 ml 4084 ml Output Total 2000 ml 900 ml 3850 ml Balance 475 ml -800 ml 234 ml Intake Oral 2475 ml 100 ml 2795 ml IV Total 1289 ml Output Urine Total 2000 ml 900 ml 3850 ml # Bowel Movements 1 1 2 Exam General: No acute distress, well-developed, well-nourished, appropriately interactive Neck: Supple with full range of motion. No jugular venous distension. No bruits. Bounding carotid pulses appreciated visualized bilaterally Cardiovascular: Regular rate and rhythm with no murmurs, rubs, or gallops appreciated, central sternal scar from previous surgery Pulmonary: Slight expiratory wheeze right upper lower lobe, slightly improved from yesterday. Normal respiratory effort with no use of accessory muscles. Abdomen: Soft, nontender, nondistended. Extremities: No clubbing, cyanosis, edema, or lymphadenopathy appreciated. Skin: Normal temperature, turgor, and texture. Psychiatric: Normal mood and affect. Alert and oriented to person, place, and time. Lab and Diagnostics Result Diagram: 10/13/1651910/13/16 0520 X-Rays, CTs and MRIs X-RAY CHEST ONE VIEW, PORTABLE INDICATIONS: chest pain TECHNIQUE: One view of the chest was acquired. COMPARISON: 09/23/2016 FINDINGS: Surgical changes and devices: Median sternotomy Lungs and pleura: No pleural effusions or pneumothorax. Lungs are clear. Mediastinum: Mediastinal contours appear normal. Heart size is normal. Bones and chest wall: No suspicious bony lesions. Multiple insufficiency compression fractures. Osteopenia. Osteoarthritis of the a.c. and glenohumeral joints. Overlying soft tissues appear unremarkable. IMPRESSION: No acute cardiopulmonary abnormality or interval change 12-lead ECG EKG shows an acute ST depression in leads V3-V6 Additional Diagnostics DIAGNOSTIC CARDIAC CATHETERIZATION ANGIOGRAPHIC FINDINGS: 1. Left main short distal 20% disease. 2. LAD has an ostial 30% disease. The LAD itself is diffusely diseased in its entirety. 3. Circumflex is totally occluded proximally. Faint filling of small obtuse marginal branches is noted on left coronary injections. 4. The first diagonal is a moderate caliber vessel. It has moderate diffuse disease. The LAD in its mid segment past the take-off of the first major septal branch has a long tubular stenosis ranging from 50%-80%. In the mid to distal segment, there is competitive flow noted into a graft. The LAD also gives epicardial collaterals to the RCA. 5. Right coronary artery is totally occluded in its mid segment. It also shows moderate calcification. 6. Saphenous vein graft to RCA is totally occluded. 7. Saphenous vein graft to OM is patent. It is a skip graft from OM1 to OM2 within the skip portion that is a tight 90% lesion. 8. Aortic angiography did not reveal the presence of an additional graft. This was done in two views. 9. Of note, the patient has an adverse takeoff of the left subclavian. It appears to be a type 3 arch. A sweeper cleaner industrial catheter was used to get into the subclavian. 10. HO angiography was then performed. The HO on this AP injection does not appear to be attached to the left coronary. There are no salvatore supporting this and the distal HO did not appear to join the LAD. At this point, however, the catheter prolapsed and the procedure was terminated. Cullen Sterling MD 10/13/16 8309 Report status: Draft Transcribed by: ADEN 10/13/16 5486 REPORT#: [id number] cc: Crow Castorena DO; Cullen Sterling MD Assessment & Plan Patient is a 76 year old female with a past medical history of CAD, Hyperlipidemia, and Essential Hypertension who is admitted to hospital for Acute Coronary Syndrome. Patient does have a hx of CAD and is status post 4 vessel CABG in 2013 in [place]. 1. Probable Acute Coronary Syndrome, present on admission, ongoing - ECHO showed EF 65-70% with normal LV size and function, mild/moderate MR. - Pharmacological stress abnormal, showing inferior ischemia. - Diagnostic heart cath showing severe disease in her LAD. - Awaiting old operative report from [facility] in [place]. - Cardiology, Dr. Sterling, will discuss further treatment options as soon as he gets the report. - Continue ASA 81mg daily - Continue Atorvastatin 40mg daily - Continue home Metoprolol ER, 100mg daily - Continue home Losartan, 100 mg daily - Continue home HCTZ, 25 mg daily - O2 via NC to keep SpO2 greater than 92% - EKG PRN chest pain - Continue SL Nitroglycerin PRN chest pain - Continue Morphine 1-2 mg IV q 4 hours PRN for refractory chest pain 2. Essential Hypertension, stable - Losartan as above - Metoprolol as above - HCTZ as above 3. Hyperlipidemia, stable - 09/23/2016: total cholesterol 174, HDL 68, LDL 86 - Atorvastatin as above GI Prophylaxis: Not indicated VTE Prophylaxis: SCDs Resuscitation Status: CPR: Attempt Resuscitation Attending Statement The patient was seen and examined together with Dr. Kaufman on 10/13/16 and I agree with the history, exam and plan as outlined in the note above. Jennifer Kaufman DO Oct 13, 2016 16:19 Lorena Beavers DO Oct 24, 2016 17:47
--- NOTE | 2016-10-13 16:22 | NUR ---
Wound Site At 1500 the cath wound site was clean dry and intact. At 1600 the cath wound site was clean dry and intact. Addendum: 10/13/16 at 1634 by BERTA BUSTILLO RN No sign of hematoma on both 1500 and 1600 checks.
--- NOTE | 2016-10-13 18:30 | NUR ---
spiritual care: follow up/pt request pt received minerva tuesday ritual from [facility] spiritual care volunteers.
--- NOTE | 2016-10-13 22:37 | NUR ---
Equipment Coordinator Femoral Site Patient has a right sided femoral access site present after general production laborer. Dressing is clean, dry, and intact and site is soft with no bruising or bleeding. Patient has no complaints at this time and is able to ambulate without issue. Continuing to monitor site for bleeding.
[2016-10-14] VITALS (23 sets, daily range): BP systolic 116–154; BP diastolic 52–74; PULSE 54–67; RESP 12–18; O2SAT 96–99
[2016-10-14] MEDS: 0.9% Sodium Chloride 1,000 ML IV SCH ×2 (00:41→14:02)
[2016-10-14 07:01] LABS: BASOPHILS % (AUTO) 0.5 % (0-3); EOSINOPHILS % (AUTO) 4.2 % (0-5); Mean Corpuscular Hemoglobin 30.3 pg (27.0-35.0); Mean Corpuscular Volume 91.7 fL (81-100); NEUTROPHILS % (AUTO) 53.3 % (40-74); Platelet Count 250 bil/L (150-400)
[2016-10-14] MEDS: MeTOProlol XL 50 mg ER24 Tablet PO SCH (08:08)
[2016-10-14] MEDS ORDERED: TR5C15 TOP (10:11)
[2016-10-14] MEDS ORDERED: Nitroglycerin 50,000 mcg/250 mL D5W Premix IV ONE (10:22)
[2016-10-14] MEDS ORDERED: 0.9% Sodium Chloride 1,000 ML ONE ×2 (10:22→10:24)
[2016-10-14] MEDS ORDERED: Heparin 1,000 Units/500 mL NS Premix IV ONE (10:22)
[2016-10-14] MEDS ORDERED: Heparin 1,000 Unit/mL 10 mL Inj ONE (10:22)
[2016-10-14] MEDS ORDERED: fentaNYL-PF 50 mCg/mL 2 mL Inj ONE (10:54)
--- NOTE | 2016-10-14 10:54 | NUR ---
To Campus Receptionist Patient report given to nurse in clay processing labourer. Patient heart monitor removed and satellite project site monitor called. Patient SL and staff from clay processing labourer came to transfer patient in bed to clay processing labourer.
[2016-10-14] MEDS ORDERED: 0.9% Sodium Chloride 250 ML ONE (11:37)
[2016-10-14] MEDS ORDERED: NitroPRUSSIDE 25,000 mCg/mL 2 mL Inj IV ONE (11:37)
--- NOTE | 2016-10-14 12:45 | DI95 ---
[address] [address] INTERVENTIONAL CARDIAC CATHETERIZATION PATIENT: JAMILA BAILON : 1940 MR#: [id number] ADMIT: 10/11/2016 JOB ID: [id number] PROCEDURE: Percutaneous intervention on the saphenous vein graft to circumflex. INDICATION: Non-ST elevation myocardial infarction. PROCEDURAL DETAILS: The reader is referred to the procedure log. Briefly it was done via right radial approach using a 6-Romansh system. An LCD guide was used to cannulate the saphenous vein graft. INTERVENTIONAL REPORT: A Runthrough wire was placed into the graft and balloon angioplasty was done with a 2.0 balloon. However, we could not get a stent through. Successive balloon angioplasty was done with a 2.5 balloon, however a 2.5 noncompliant balloon could not be delivered through this; this necessitated a dolly wire and a balanced heavyweight wire was used as a dolly wire. Following that, we balloon dilated this lesion and then stented with a 2.75 x 12 mm Xience drug-coated stent delivered at 14 atmospheres with good angiographic results. The patient is advised dual antiplatelet therapy for at least 6-12 months post procedure.
[2016-10-14] MEDS ORDERED: Sodium Chloride LOK Flush 10 mL Syringe IVFLUSH PRN (15:35)
[2016-10-14] MEDS ORDERED: 0.9% Sodium Chloride 400 ML (4 HRS) IV ONE (15:35)
[2016-10-14] MEDS ORDERED: Atropine 1 mg/10 mL (Code) Syringe IVPUSH PRN (15:35)
[2016-10-14] MEDS ORDERED: 0.9% Sodium Chloride 250 ML BOLUS IV PRN (15:35)
--- NOTE | 2016-10-14 15:36 | NUR ---
ISMAEL Patient to [facility] from labor arbitrator hearing office at 1230. Right groin perclose without bleeding or hematoma. Pedal pulses present. Denies pain. Taking sips PO and void pr bedpan. Transfer by bed to room 2024 at 1505. Report to receiving RN.
--- NOTE | 2016-10-14 17:43 | PCM.PNMED ---
Subjective Date of Service Oct 14, 2016 Subjective Patient is a 76 year old female with a past medical history of Essential Hypertension, Hyperlipidemia, Coronary Artery Disease status post CABG in 2012, and Osteoarthritis. She presents to the ER complaining of chest pain. Patient has been admitted for SD rule out. Hospital day #4. Overnight: no acute events. Telemetry: Sinus paula in 58's. Patient s/p soap slabber. She States her chest pain has been resolved and she is feeling fine. She denies heart palpitations, shortness of breath, nausea, vomiting, dizziness, abdominal or inguinal pain. Exam Vital Signs Vital Sign - Last Date Time Temp Pulse Resp B/P Pulse Ox O2 Delivery O2 Flow Rate FiO2 10/14/16 15:25 36.7 58 14 154/65 99 Room Air Intake and Output 10/13/16 10/13/16 10/14/16 Cumulative From/Thru 15:00 23:00 07:00 10/11/16 11:43 - 10/14/16 06:35 Intake Total 200 ml 1674 ml 5958 ml Output Total 400 ml 1825 ml 6075 ml Balance -200 ml -151 ml -117 ml Intake Oral 200 ml 300 ml 3295 ml IV Total 1374 ml 2663 ml Output Urine Total 400 ml 1825 ml 6075 ml # Voids 1 1 # Bowel Movements 0 2 Exam General: No acute distress, well-developed, well-nourished, appropriately interactive Neck: Supple with full range of motion. No jugular venous distension. No bruits. Bounding carotid pulses appreciated visualized bilaterally Cardiovascular: Regular rate and rhythm with no murmurs, rubs, or gallops appreciated, central sternal scar from previous surgery Pulmonary: Slight expiratory wheeze right upper lower lobe, slightly improved from yesterday. Normal respiratory effort with no use of accessory muscles. Abdomen: Soft, nontender, nondistended. Extremities: No clubbing, cyanosis, edema, or lymphadenopathy appreciated. Skin: Normal temperature, turgor, and texture. Right inguinal area without hematoma, swelling, erythema Psychiatric: Normal mood and affect. Alert and oriented to person, place, and time. Lab and Diagnostics Result Diagram: 10/14/1622 10/14/16 0622 X-Rays, CTs and MRIs X-RAY CHEST ONE VIEW, PORTABLE INDICATIONS: chest pain TECHNIQUE: One view of the chest was acquired. COMPARISON: 09/23/2016 FINDINGS: Surgical changes and devices: Median sternotomy Lungs and pleura: No pleural effusions or pneumothorax. Lungs are clear. Mediastinum: Mediastinal contours appear normal. Heart size is normal. Bones and chest wall: No suspicious bony lesions. Multiple insufficiency compression fractures. Osteopenia. Osteoarthritis of the a.c. and glenohumeral joints. Overlying soft tissues appear unremarkable. IMPRESSION: No acute cardiopulmonary abnormality or interval change 12-lead ECG EKG shows an acute ST depression in leads V3-V6 Additional Diagnostics DIAGNOSTIC CARDIAC CATHETERIZATION ANGIOGRAPHIC FINDINGS: 1. Left main short distal 20% disease. 2. LAD has an ostial 30% disease. The LAD itself is diffusely diseased in its entirety. 3. Circumflex is totally occluded proximally. Faint filling of small obtuse marginal branches is noted on left coronary injections. 4. The first diagonal is a moderate caliber vessel. It has moderate diffuse disease. The LAD in its mid segment past the take-off of the first major septal branch has a long tubular stenosis ranging from 50%-80%. In the mid to distal segment, there is competitive flow noted into a graft. The LAD also gives epicardial collaterals to the RCA. 5. Right coronary artery is totally occluded in its mid segment. It also shows moderate calcification. 6. Saphenous vein graft to RCA is totally occluded. 7. Saphenous vein graft to OM is patent. It is a skip graft from OM1 to OM2 within the skip portion that is a tight 90% lesion. 8. Aortic angiography did not reveal the presence of an additional graft. This was done in two views. 9. Of note, the patient has an adverse takeoff of the left subclavian. It appears to be a type 3 arch. A solution make up operator catheter was used to get into the subclavian. 10. HO angiography was then performed. The HO on this AP injection does not appear to be attached to the left coronary. There are no salvatore supporting this and the distal HO did not appear to join the LAD. At this point, however, the catheter prolapsed and the procedure was terminated. Cullen Sterling MD 10/13/16 0227 PROCEDURE: Percutaneous intervention on the saphenous vein graft to circumflex. INDICATION: Non-ST elevation myocardial infarction. PROCEDURAL DETAILS: The reader is referred to the procedure log. Briefly it was done via right radial approach using a 6-[place]izen [place] system. An LCD guide was used to cannulate the saphenous vein graft. INTERVENTIONAL REPORT: A Runthrough wire was placed into the graft and balloon angioplasty was done with a 2.0 balloon. However, we could not get a stent through. Successive balloon angioplasty was done with a 2.5 balloon, however a 2.5 noncompliant balloon could not be delivered through this; this necessitated a dolly wire and a balanced heavyweight wire was used as a dolly wire. Following that, we balloon dilated this lesion and then stented with a 2.75 x 12 mm Xience drug-coated stent delivered at 14 atmospheres with good angiographic results. The patient is advised dual antiplatelet therapy for at least 6-12 months post procedure. Cullen Sterling MD 10/14/16 1218 Assessment & Plan Patient is a 76 year old female with a past medical history of CAD, Hyperlipidemia, and Essential Hypertension who is admitted to hospital for Acute Coronary Syndrome. Patient does have a hx of CAD and is status post 4 vessel CABG in 2012 in [place]. 1. Probable Acute Coronary Syndrome, present on admission, ongoing - ECHO showed EF 65-70% with normal LV size and function, mild/moderate MR. - Pharmacological stress abnormal, showing inferior ischemia. - Diagnostic heart cath showing severe disease in her LAD. - Old operative report from [facility] in [place] requested. - Percutaneous intervention on the saphenous vein graft to circumflex performed today by Dr. Sterling. - Dual antiplatelet therapy for at least 6-12 months post procedure recommended by cardiology. Patient is currently on aspirin and clopidogrel. - Continue ASA 81mg daily - Continue Atorvastatin 40mg daily - Continue home Metoprolol ER, 100mg daily - Continue home Losartan, 100 mg daily - Continue home HCTZ, 25 mg daily - O2 via NC to keep SpO2 greater than 92% - EKG PRN chest pain - Continue SL Nitroglycerin PRN chest pain - Continue Morphine 1-2 mg IV q 4 hours PRN for refractory chest pain 2. Essential Hypertension, stable - Losartan as above - Metoprolol as above - HCTZ as above 3. Hyperlipidemia, stable - 09/23/2016: total cholesterol 174, HDL 68, LDL 86 - Atorvastatin as above GI Prophylaxis: Not indicated VTE Prophylaxis: SCDs VTE Mechanical Devices: Intermittant Pneumatic CD Resuscitation Status: CPR: Attempt Resuscitation Attending Statement The patient was seen and examined together with Dr. Kaufman on 10/14/16 and I agree with the history, exam and plan as outlined in the note above. Jennifer Kaufman DO Oct 14, 2016 17:43 Lorena Beavers DO Oct 24, 2016 17:48
--- NOTE | 2016-10-14 18:00 | NUR ---
Admit to PCC Pt admitted to PCC room 2024 from [facility]. Reports from Christen STARKEY ([facility]) and Mariam STARKEY ([facility]). Pt received 1 stent to with right groin perclose, pedal pulses present. Pt is alert and oriented but sleepy, denies pain. On bedrest until 1630. Telemetry initiated and tech notified. SR 58. Pt is independent at baseline per report.
[2016-10-15 00:17] VITALS: BP 136/69; PULSE 70; RESP 16; O2SAT 98
[2016-10-15 03:35] VITALS: BP 114/52; PULSE 64; RESP 16; O2SAT 96
[2016-10-15 03:47] LABS: BASOPHILS % (AUTO) 0.5 % (0-3); EOSINOPHILS % (AUTO) 4.3 % (0-5); MONOCYTES % (AUTO) 8.4 % (4-12); Mean Corpuscular Hemoglobin 30.4 pg (27.0-35.0); Mean Corpuscular Volume 92.1 fL (81-100); NEUTROPHILS % (AUTO) 61.2 % (40-74); Platelet Count 248 bil/L (150-400)
[2016-10-15] MEDS: 0.9% Sodium Chloride 1,000 ML IV SCH (05:56)
[2016-10-15 08:00] VITALS: PULSE 63
[2016-10-15 08:08] VITALS: BP 135/62; PULSE 60; RESP 16; O2SAT 97
[2016-10-15] MEDS: MeTOProlol XL 50 mg ER24 Tablet PO SCH (10:12)
--- NOTE | 2016-10-15 11:25 | PCM.DIMED ---
Discharge Instructions Date of Service Oct 15, 2016 Dates of Hospitalization Oct 11, 2016 at 10:49 Discharge Diagnosis Discharge Diagnosis 1. NSTEMI, status post PCI with stenting to saphenous vein graft 2. CAD with history of CABG 3. Hypertension, essential 4. Hyperlipidemia Diet Heart Healthy Activity Limited until seen by PCP Call your provider Shortness of breath, Chest pain Patient Instructions Follow-up Provider: Crow Castorena DO Follow-up with PCP in: 1 week Provider: Cullen Sterling MD Follow-up in: 6 weeks Richie Le MD Oct 15, 2016 11:25
[2016-10-15] MEDS ORDERED: LOSA100T3 PO (11:28)
[2016-10-15] MEDS ORDERED: NITR0.4T SL (11:28)
[2016-10-15] MEDS ORDERED: METO-272 PO (11:28)
[2016-10-15] MEDS ORDERED: ATOR40TA69 PO (11:28)
[2016-10-15] MEDS ORDERED: CLOP75TA3 PO (11:28)
[2016-10-15 12:00] VITALS: BP 118/50; PULSE 68; RESP 16; O2SAT 98
--- NOTE | 2016-10-15 15:00 | NUR ---
Discharge note Patient a/o x 3, denies chest pain, sob or nausea. Right groin site soft, no hematoma, bilat pedal pulses palpable. VSS, tele SR. Patient amb in room with walker steady gait. IV SL x2 and tele discont. Patient and daughter given discharge instructions, medication reconciliation, prescriptions and info on angioplasty. All questions answered. Patient taken to the car via wheelchair with all belongings and discharged home with family.
--- NOTE | 2016-10-15 17:06 | PCM.DC.MED ---
Discharge Summary Date of Service Oct 15, 2016 Dates of Hospitalization Date of Hospital Admission Oct 11, 2016 at 10:49 Date of Discharge: Oct 15, 2016 Providers: Admitting Physician: Iam Hines MD Primary Care Physician: Crow Castorena DO Attending Physician: Iam Hines MD Diagnosis at Time of Discharge Diagnosis at Time of Discharge 1. Acute coronary syndrome, status post PCI with stenting to saphenous vein graft 2. CAD with history of CABG 3. Hypertension, essential 4. Hyperlipidemia Procedures XRay, CTs & MRIs X-RAY CHEST ONE VIEW, PORTABLE INDICATIONS: chest pain TECHNIQUE: One view of the chest was acquired. COMPARISON: 09/23/2016 FINDINGS: Surgical changes and devices: Median sternotomy Lungs and pleura: No pleural effusions or pneumothorax. Lungs are clear. Mediastinum: Mediastinal contours appear normal. Heart size is normal. Bones and chest wall: No suspicious bony lesions. Multiple insufficiency compression fractures. Osteopenia. Osteoarthritis of the a.c. and glenohumeral joints. Overlying soft tissues appear unremarkable. IMPRESSION: No acute cardiopulmonary abnormality or interval change ECG 12 Lead EKG shows an acute ST depression in leads V3-V6 Cardiac Echo Impression 1) Normal left ventricular thickness, size, wall motion,and systolic function (EF 65-70%). 2) Normal right ventricular size and function. 3) Mildly sclerotic aortic valve with no hemodynamically significant stenosis or regurgitation. 4) Mild to moderate mitral regurgitation present. 5) No prior Echo available for comparison. Invasive Procedures 3/ PCI: A Runthrough wire was placed into the graft and balloon angioplasty was done with a 2.0 balloon. However, we could not get a stent through. Successive balloon angioplasty was done with a 2.5 balloon, however a 2.5 noncompliant balloon could not be delivered through this; this necessitated a dolly wire and a balanced heavyweight wire was used as a dolly wire. Following that, we balloon dilated this lesion and then stented with a 2.75 x 12 mm Xience drug-coated stent delivered at 14 atmospheres with good angiographic results. The patient is advised dual antiplatelet therapy for at least 6-12 months post procedure. Other Diagnostics DIAGNOSTIC CARDIAC CATHETERIZATION ANGIOGRAPHIC FINDINGS: 1. Left main short distal 20% disease. 2. LAD has an ostial 30% disease. The LAD itself is diffusely diseased in its entirety. 3. Circumflex is totally occluded proximally. Faint filling of small obtuse marginal branches is noted on left coronary injections. 4. The first diagonal is a moderate caliber vessel. It has moderate diffuse disease. The LAD in its mid segment past the take-off of the first major septal branch has a long tubular stenosis ranging from 50%-80%. In the mid to distal segment, there is competitive flow noted into a graft. The LAD also gives epicardial collaterals to the RCA. 5. Right coronary artery is totally occluded in its mid segment. It also shows moderate calcification. 6. Saphenous vein graft to RCA is totally occluded. 7. Saphenous vein graft to OM is patent. It is a skip graft from OM1 to OM2 within the skip portion that is a tight 90% lesion. 8. Aortic angiography did not reveal the presence of an additional graft. This was done in two views. 9. Of note, the patient has an adverse takeoff of the left subclavian. It appears to be a type 3 arch. A dietary aide teacher catheter was used to get into the subclavian. 10. HO angiography was then performed. The HO on this AP injection does not appear to be attached to the left coronary. There are no salvatore supporting this and the distal HO did not appear to join the LAD. At this point, however, the catheter prolapsed and the procedure was terminated. Cullen Sterlign MD 10/13/16 1417 PROCEDURE: Percutaneous intervention on the saphenous vein graft to circumflex. INDICATION: Non-ST elevation myocardial infarction. PROCEDURAL DETAILS: The reader is referred to the procedure log. Briefly it was done via right radial approach using a 6-[place] system. An LCD guide was used to cannulate the saphenous vein graft. INTERVENTIONAL REPORT: A Runthrough wire was placed into the graft and balloon angioplasty was done with a 2.0 balloon. However, we could not get a stent through. Successive balloon angioplasty was done with a 2.5 balloon, however a 2.5 noncompliant balloon could not be delivered through this; this necessitated a dolly wire and a balanced heavyweight wire was used as a dolly wire. Following that, we balloon dilated this lesion and then stented with a 2.75 x 12 mm Xience drug-coated stent delivered at 14 atmospheres with good angiographic results. The patient is advised dual antiplatelet therapy for at least 6-12 months post procedure. Cullen Sterling MD 10/14/16 1218 Brief History Ms. Ross is a pleasant 76 year old female with PMH of HTN, HLD, RA and CAD (s /p CABG in 2012) presented to [facility] ED 2/2 CP x 3 days and getting far worse this morning. She states this pain began while she was walking around her house looking for her family 3 days ago and describes the chest pain as a heavy pressure like sensation mid sternum, non radiating without SOB and diaphoresis. Pt denies associated N/V, dizziness, palpitations or any other pain. She does endorse a similar pain about three years ago which led to her CABG in [place]. ECG in the ED showed ST depression in leads V3-V6, repeat ECG showed resolution of the ST depression. In ED Pt given ASA and nitro with resolution of her CP. Initial and repeat troponin Negative. Pt does endorse a semi productive cough over the last few days as well as a recent respiratory illness after receiving her flu and pneumonia vaccine approximately 3 weeks ago. No other sick contacts at home. Patient denies recent fever When asked to localize chest pain patient will point with one finger to left breast area. This pain is immediately reproduced upon palpation in both left breast area as well as sternal area. Of note Pt was recently seen as in the residency clinic for workup secondary to abnormal CXR. Patient had chest x-ray 09/23/2016 which showed mild interstitial prominence possibly fluid overload or underlying fibrotic change bones and chest wall at that time noted no suspicious bony abnormalities. CXR done 10/11/2016 showed multiple insufficiency compression fractures the bones and chest wall. Osteopenia. No acute cardiopulmonary abnormality or interval change. Mammogram done 09/07/2016 with repeat mammogram 09/14/2016 showed that the tissue of the left breast to be extremely dense with oval focal asymmetry with obscured margins of indeterminant significance. Follow-up ultrasound showed no evidence of malignancy and no abnormality to correspond with previous 2 mammography's. Per previous healthcare records from [place] is also reported patient has had a chest x-ray that was suggestive of TB. Pertinent past medical/cardiac history: Hypertension, hyperlipidemia, CAD status post CABG. patient does not endorse diabetic history though outpatient records from [place] show previously on metformin 500 twice a day. Home medications: Patient states home meds include hydrochlorothiazide, metoprolol, losartan, atorvastatin Social history: Patient is nonsmoker, denies EtOH use denies recreational drug use. Lives at home with daughter, son-in-law and granddaughter age 15. Family history significant for both parents suffering fatal heart attacks in their 70s. She reports 3 of her brothers have also suffered myocardial infarction. Hospital Course Patient is a 76 year old female with a past medical history of CAD, Hyperlipidemia, and Essential Hypertension who is admitted to hospital for Acute Coronary Syndrome. Patient does have a hx of CAD and is status post 4 vessel CABG in 2012 in [place]. 1. Probable Acute Coronary Syndrome, present on admission, ongoing - ECHO showed EF 65-70% with normal LV size and function, mild/moderate MR. - Pharmacological stress abnormal, showing inferior ischemia. - Diagnostic heart cath showing severe disease in her LAD. - Old operative report from [facility] in [place] requested. - Percutaneous intervention on the saphenous vein graft to circumflex performed today by Dr. Sterling. - Dual antiplatelet therapy for at least 6-12 months post procedure recommended by cardiology. Patient is currently on aspirin and clopidogrel. - Continue ASA 81mg daily - Continue Atorvastatin 40mg daily - Continue home Metoprolol ER, 100mg daily - Continue home Losartan, 100 mg daily - Continue home HCTZ, 25 mg daily - O2 via NC to keep SpO2 greater than 92% - EKG PRN chest pain - Continue SL Nitroglycerin PRN chest pain - Continue Morphine 1-2 mg IV q 4 hours PRN for refractory chest pain 2. Essential Hypertension, stable - Losartan as above - Metoprolol as above - HCTZ as above 3. Hyperlipidemia, stable - 09/23/2016: total cholesterol 174, HDL 68, LDL 86 - Atorvastatin as above Hospital course. This patient is admitted for chest pain. She is in context of a history of CAD with 4 vessel bypass in 2012. She had serial negative troponins and underwent a stress test which revealed a large inferior posterior vertebral defect. Angiography indicated a fairly severe saphenous vein graft obstruction. Cardiology reviewed outside operative records and ultimately decided to recommend PCI of this graft. PCL graft was performed on October 14 without complication. The patient did well post procedure had no problems with dyspnea or chest pain. Recommendations were for dual antiplatelet agents for 6- 12 months. Exam Vital Signs (Last) Date Time Temp Pulse Resp B/P Pulse Ox O2 Delivery O2 Flow Rate FiO2 10/15/16 12:00 36.8 68 16 118/50 98 Room Air Exam Patient was seen and examined on the day of discharge Test 10/11/16 08:35 10/11/16 12:26 10/11/16 16:36 10/12/16 06:25 Hemoglobin A1c 6.2% (4.8-5.6) Pro-B-Type Natriuretic Peptide 306.1pg/mL (0-738) Magnesium Level 1.7mg/dL (1.6-2.6) Thyroid Stimulating Hormone (TSH) 0.545uIU/mL (0.450-4.500) Hold Schroeder Top Tube Received (Received) Activated Partial Thromboplast Time 95.5sec (22.8-33.0) Total Creatine Kinase 120U/L (21-215) Creatine Kinase MB 3.0ng/mL (0.0-5.3) Creatine Kinase MB % % (0.0-5.0) Troponin T < 0.010ug/L (0.0-0.011) Triglycerides Level 105mg/dL (0-149) Cholesterol Level 167mg/dL (100-199) LDL Cholesterol, Calculated 91.000mg/dL (0-99) VLDL Cholesterol 21.000mg/dL HDL Cholesterol 55mg/dL (>39) Cholesterol/HDL Ratio 3.04 (0.0-4.4) Test 10/15/16 03:25 White Blood Count 9.7th/mm3 (3.8-10.1) Red Blood Count 4.04mil/mm3 (3.90-5.20) Hemoglobin 12.3g/dL (12.0-15.6) Hematocrit 37.2% (35.0-46.0) Mean Corpuscular Volume 92.1fL (81-100) Mean Corpuscular Hemoglobin 30.4pg (27.0-35.0) Mean Corpuscular Hemoglobin Concent 33.1% (32.0-37.0) Red Cell Distribution Width 13.4% (12.3-15.4) Platelet Count 248bil/L (150-400) Neutrophils (%) (Auto) 61.2% (40-74) Lymphocytes (%) (Auto) 25.3% (14-46) Monocytes (%) (Auto) 8.4% (4-12) Eosinophils (%) (Auto) 4.3% (0-5) Basophils (%) (Auto) 0.5% (0-3) Sodium Level 133mEq/L (134-144) Potassium Level 4.6mEq/L (3.5-5.2) Chloride Level 99mEq/L (97-108) Carbon Dioxide Level 22mmol/L (18-29) Blood Urea Nitrogen 20mg/dL (8-27) Creatinine 1.04mg/dL (0.57-1.00) Estimat Glomerular Filtration Rate 74mL/min (>59) Glucose Level 106mg/dL (60-99) Calcium Level 8.8mg/dL (8.5-10.1) Total Bilirubin 0.3mg/dL (0.0-1.2) Aspartate Amino Transf (AST/SGOT) 23U/L (0-50) Alanine Aminotransferase (ALT/SGPT) 13U/L (0-32) Alkaline Phosphatase 79U/L (25-165) Total Protein 6.4g/dL (6.4-8.4) Albumin 3.4g/dL (3.4-5.0) Discharge Medications Discharge Medications Alendronate Sodium (Fosamax) 70 Mg Tablet 70 MG PO WEEKLY (Reported) Aspirin (Aspirin) 81 Mg Tablet 81 MG PO DAILY (Reported) Atorvastatin Calcium (Atorvastatin Calcium) 40 Mg Tablet 40 MG PO HS Prescribed by: RICHIE LE MD Clopidogrel Bisulfate (Plavix) 75 Mg Tablet 75 MG PO DAILY Prescribed by: RICHIE LE MD Cyanocobalamin (Vitamin B-12) (Vitamin B12) 5,000 Mcg Tab.rapdis 5,000 MCG PO DAILY (Reported) Hydrochlorothiazide (Hydrochlorothiazide) 12.5 Mg Capsule 12.5 MG PO DAILY ( Reported) Losartan Potassium (Losartan Potassium) 50 Mg Tablet 50 MG PO DAILY (Reported) Losartan Potassium (Cozaar) 100 Mg Tablet 100 MG PO DAILY Prescribed by: RICHIE LE MD Metoprolol Succinate ER (Metoprolol Succinate ER) 50 Mg Tab.er.24h 100 MG PO DAILY Prescribed by: RICHIE LE MD Multivitamin (Once Daily) 1 Each Tablet 1 EACH PO DAILY (Reported) Ranitidine (Ranitidine) 150 Mg Capsule 150 MG PO BID (Reported) Triamcinolone Acet (Triamcinolone Acetonide Cream) 4 Applic/Gm Cr 1 APPLIC TOP BID (Reported) As needed Diphenhydra/Phenyleph/Acetamin (Allergy Plus-Sinus Broderick Caplet) 1 Each Tablet 1-2 EACH PO q4-6 hours PRN PRN allergies (Reported) Nitroglycerin SL (Nitrostat) 0.4 Mg Tab.subl 0.4 MG SL Q5MIN PRN PRN For Chest Pain IF SBP > 90 Prescribed by: RICHIE LE MD Tramadol (Tramadol) 50 Mg Tablet 50 MG PO BID PRN PRN For Pain (Reported) Followup Plan Disposition: Home Discharge Diet: Heart Healthy Discharge Activity: Limited until seen by PCP Follow-up Provider: Crow Castorena DO Follow-up with PCP in: 1 week Provider: Cullen Sterling MD Follow-up in: 6 weeks Time spent 40 minute Richie Le MD Oct 15, 2016 17:05
== END 2016-10-15 13:47 | disposition home or self-care (01) | DRG 247 ==
LOC: SED 08:16 → EDBD 08:16 → MPC 10:49 → OBSVTOIN 10:49 → PCC 10-14 14:38
PROVIDERS: ADMIT Family Medicine; ATTEND Family Medicine
PROC: 4A023N7 Measurement of Cardiac Sampling and Pressure, Left Heart, Percutaneous Approach (ICD-10-PCS; 2016-10-13)
PROC: B2111ZZ Fluoroscopy of Multiple Coronary Arteries using Low Osmolar Contrast (ICD-10-PCS; 2016-10-13)
PROC: B2131ZZ Fluoroscopy of Multiple Coronary Artery Bypass Grafts using Low Osmolar Contrast (ICD-10-PCS; 2016-10-13)
PROC: B3101ZZ Fluoroscopy of Thoracic Aorta using Low Osmolar Contrast (ICD-10-PCS; 2016-10-13)
PROC: 027034Z Dilation of Coronary Artery, One Artery with Drug-eluting Intraluminal Device, Percutaneous Approach (ICD-10-PCS; principal; 2016-10-14)
DX: I24.9 Acute ischemic heart disease, unspecified (principal); I25.810 Atherosclerosis of coronary artery bypass graft(s) without angina pectoris; Z95.1 Presence of aortocoronary bypass graft; I10 Essential (primary) hypertension; Z96.659 Presence of unspecified artificial knee joint; E78.5 Hyperlipidemia, unspecified; Z79.82 Long term (current) use of aspirin; M06.9 Rheumatoid arthritis, unspecified; R94.39 Abnormal result of other cardiovascular function study